=== PATIENT | male | born 1965 ===

== ENCOUNTER → 2024-02-10 13:48 | Outpatient (BNVA) | payer OTHER, SELFPAY | PROVIDERS: Visit Provider Physician Assistant Medical | DX: S39.012A Strain of muscle, fascia and tendon of lower back, initial encounter (principal); X50.0XXA Overexertion from strenuous movement or load, initial encounter | CPT/HCPCS: 99203 ==

== ENCOUNTER → 2024-02-13 09:57 | Outpatient (BNVA) | payer OTHER, SELFPAY | PROVIDERS: Visit Provider Physician Assistant Medical | DX: S39.012A Strain of muscle, fascia and tendon of lower back, initial encounter (principal); X50.0XXA Overexertion from strenuous movement or load, initial encounter | CPT/HCPCS: 99213 ==

== ENCOUNTER → 2024-02-21 12:46 | Outpatient (BNVA) | payer OTHER, SELFPAY | PROVIDERS: Visit Provider Physician Assistant | DX: S39.012A Strain of muscle, fascia and tendon of lower back, initial encounter (principal); X50.0XXA Overexertion from strenuous movement or load, initial encounter | CPT/HCPCS: 99213 ==

== ENCOUNTER → 2025-03-15 12:52 | Outpatient (BNVA) | payer OTHER, SELFPAY | PROVIDERS: Visit Provider Physician Assistant Medical | DX: S30.0XXA Contusion of lower back and pelvis, initial encounter (principal); S39.012A Strain of muscle, fascia and tendon of lower back, initial encounter; W10.9XXA Fall (on) (from) unspecified stairs and steps, initial encounter | CPT/HCPCS: 72110; 99204 ==

== ENCOUNTER → 2025-03-17 11:13 | Outpatient (BNVA) | payer OTHER, SELFPAY | PROVIDERS: Visit Provider Internal Medicine | DX: S39.012A Strain of muscle, fascia and tendon of lower back, initial encounter (principal); W01.0XXA Fall on same level from slipping, tripping and stumbling without subsequent striking against object, initial encounter | CPT/HCPCS: 99213 ==

== ENCOUNTER → 2025-03-24 11:30 | Outpatient (BNVA) | payer OTHER, SELFPAY | PROVIDERS: Visit Provider Internal Medicine | DX: S39.012A Strain of muscle, fascia and tendon of lower back, initial encounter (principal); W10.9XXA Fall (on) (from) unspecified stairs and steps, initial encounter | CPT/HCPCS: 99213 ==

== ENCOUNTER → 2025-04-14 08:33 | Outpatient (BNVA) | payer OTHER, SELFPAY | PROVIDERS: Visit Provider Internal Medicine | DX: S39.012D Strain of muscle, fascia and tendon of lower back, subsequent encounter (principal); W10.9XXD Fall (on) (from) unspecified stairs and steps, subsequent encounter | CPT/HCPCS: 99213 ==

== ENCOUNTER → 2025-04-28 08:31 | Outpatient (BNVA) | payer OTHER, SELFPAY | PROVIDERS: Visit Provider Internal Medicine | DX: M54.50 Low back pain, unspecified (principal) | CPT/HCPCS: 99213 ==

== ENCOUNTER → 2025-05-12 09:22 | Outpatient (BNVA) | payer OTHER, SELFPAY | PROVIDERS: Visit Provider Internal Medicine | DX: M54.50 Low back pain, unspecified (principal); M46.86 Other specified inflammatory spondylopathies, lumbar region | CPT/HCPCS: 99213 ==

== ENCOUNTER 2025-05-24 08:14 | Outpatient (AMB) | payer OTHER, SELFPAY ==
--- OUTSIDE RECORDS SUMMARY | 2025-05-24 08:18 | XMS_ITS | Data Portability ---
Author Organization [place] - [facility], , [facility] Address [address] [place] [address] Assessment No assessment recorded. Plan of Treatment Reminders Order Date Submit Date Provider Last Modified By Organization Details Last Modified Time Details Appointments None record ed. Lab None record ed. Referral None record ed. Procedures None record ed. Surgeries None record ed. Imaging None record ed. Medication Orders None record ed. Patient TargetsNo targets recorded. Patient InstructionsNo instructions recorded. Reason for Referral None Reported. Results Created Date Observation Date Name Description Value Unit Range Abnormal Flag Note LastModifiedBy Organization Detail LastModifiedTime 02/06/20 08 02/09/2008 thyro id stimu latin g hormo ne (TSH) TSH 1.50 uIU/m L 0.50-6 .00 the ameri can colle ge of endoc rinol ogy and ameri can thyro id assoc iatio n recom mend goal TSH value s betwe en 1.0-2 .5 mIU/m L. Not Available [address], [address], 12/25/2008 03:52:28 07/27/20 22 07/27/2022 SARS- COV-2 RNA (COVI D-19) , QUALI TATIV E NAAT sarscov2 NEGATI VE negati ve normal This test has been autho rized by the FDA under an Emerg ency Use Autho rizat ion(E UA) for you by autho rized labs. Not Available [address], [address], 07/27/2022 16:29:54 Result Notes None recorded. Problems Name Problem SNOMED Code Status Onset Date Resolution Date Notes Provider Name and Address Organization Details Recorded Time Colitis, enteritis and gastroente ritis presumed infectious 030434161 Completed 200509/30/2013 Not Available [facility] 3 02:03:03 Cough 68209476 Completed 200709/30/2013 Not Available [facility] 3 02:01:08 Extrinsic asthma with asthma attack Active 2005 Not Available [facility] 3 03:12:44 Lateral epicondyli tis 318698837 Completed 200409/30/2013 Not Available [facility] 3 02:02:34 Sleep disorder 43390288 Active 2007 Not Available [facility] 3 03:12:44 Allergic rhinitis 43303335 Active 2005 Not Available [facility] 3 03:12:44 Radiology result abnormal 801733055 Active 2005 Not Available [facility] 3 03:12:44 Allergic asthma without status asthmaticu s 25706119 Active 2004 Not Available [facility] 3 03:12:44 Insomnia 085020348 Active 2007 Not Available [facility] 3 03:12:44 Common cold 80181149 Completed 200509/30/2013 Not Available [facility] 3 02:00:29 Nieto's esophagus 176440622 Active 2005 Not Available [facility] 3 03:12:44 Obstructiv e sleep apnea syndrome 81364562 Active 2006 Not Available [facility] 3 03:12:44 Abnormal weight gain 155323914 Active 2007 Not Available [facility] 3 03:12:44 Epigastric pain 51284616 Completed 200509/30/2013 Not Available [facility] 3 02:03:28 Generalize d abdominal pain 133282617 Completed 200509/30/2013 Not Available [facility] 3 02:02:06 Left upper quadrant pain 501222268 Completed 200509/30/2013 Not Available [facility] 3 02:03:59 Problem Notes None recorded. Procedures Surgical History Date Name Laterality Status Provider Name and Address Organization Details Recorded Time 07/30/20 Budhraja - Colonoscopy completed Ricardo Wing MD [address] [place] [address], [id number] [facility] [place]/30/2022 08:52:21 07/17/20 06 completed Not Available [facility] 1 06:05:52 Imaging Results None recorded. Procedure Notes None recorded. Medical Equipment None Reported. Allergies No known drug allergies Medications Name Sig Start Date Stop Date Status Note LastModified by Organization Details LastModified Time Singulair 10 mg tablet 008 active Take 1.00 tabs every night at bedtime Not Available Not Available Not Available albuterol sulfate 2.5 mg/3 mL (0.083 %) solution for nebulization 008 active Take 3.00 ml every 4 hours as needed Not Available Not Available Not Available Flonase 50 mcg/actuation nasal spray,suspensi on 008 active Take 2.00 spray(s) daily Not Available Not Available Not Available fexofenadine 180 mg tablet 008 active Take 1.00 tabs daily Not Available Not Available Not Available omeprazole 20 mg capsule,delaye d release 008 active Take 1.00 caps daily; [facility], [facility] Not Available Not Available Not Available albuterol sulfate HFA 90 mcg/actuation aerosol inhaler 008 active Take 2.00 puffs 4 times a day as needed; pt call sat am wants rx to [facility] [place] Not Available Not Available Not Available Vitals None Recorded Social History None recorded. Functional Status None recorded. Mental Status None recorded. Family History Nothing Reported. Medical History No medical history recorded. Past Encounters Encounter ID Performer Location Encounter Start Date Encounter Closed Date Diagnosis/Indication Diagnosis SNOMED-CT Code Diagnosis ICD10 Code Diagnosis Note [id number] Phuc MCCRACKEN, [facility], OFFICE [address] [place] [address] 06/06/2005 16:38:51 06/07/2005 11:17:18 [id number] Phuc MCCRACKEN, [address] [place] [address] 08/23/2005 13:35:28 08/23/2005 18:02:19 [id number] Phuc MCCRACKEN, [address] [place] [address] 09/21/2005 16:50:58 09/24/2005 09:17:46 [id number] MD KAYKAY Vick, [address] [place] [address] 01/22/2006 16:08:34 01/23/2006 09:00:46 [id number] Joleen Butler, [address] [place] [address] 01/31/2006 11:48:24 02/01/2006 08:27:07 [id number] Joleen Butler, [address] [place] [address] 02/06/2006 09:28:38 02/07/2006 08:27:09 [id number] Joleen Butler, [address] [place] [address] 02/06/2006 00:00:00 12/01/2008 02:02:29 [id number] Phuc MCCRACKEN [address] [place] [address] 04/04/2006 16:47:19 04/05/2006 08:23:23 [id number] Phuc MCCRACKEN [address] [place] [address] 05/01/2006 16:12:26 05/02/2006 07:33:47 [id number] [facility] - [facility] [address] [place] [address] 05/02/2006 07:30:24 05/02/2006 16:23:17 [id number] [facility], HENRIK KOENIG MD [facility], [address] [place] [address] 07/17/2006 11:04:54 07/18/2006 07:51:52 [id number] Phuc MCCRACKEN [address] [place] [address] 08/13/2007 15:23:28 12/01/2008 02:02:29 [id number] [facility] - [facility] [address] [place] [address] 02/06/2008 15:47:13 02/06/2008 15:47:20 [id number] Mendel Isabel NP , [facility], OFFICE [address] [place] [address] 03/24/2008 08:31:17 12/01/2008 02:02:29 [id number] Ricardo Wing MD ASP, [facility] [address] [place] [address] 07/30/2022 07:29:39 07/30/2022 12:28:48 Health Concerns Section Related Observation LastModified by Organization Detai ls LastModified Time None Recorded Concern Status LastModified by Organization Details LastModified Time None Recorded Advance Directives Directive None Recorded Payers Insurance Date Sequence Insurance Name Policy Number Policy Smith Covered Member ID Smith Member ID Guarantor Name 07/30/2022 1 MATHEW (PPO) [id number] Aishwarya Hernandez [id number] [place] 11/02/2005 1 [facility] [id number] [place] 10/22/2005 [facility] [employer] [address] [place] 10/22/2005 [employer] [facility] [place] 04/18/2022 1 [facility] Aishwarya Hernandez [id number] [facility]
--- NOTE | 2025-05-24 08:21 | A.OFFVIS_ITS ---
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 The pain originated from a work-related injury on March 15, 2025, when the patient twisted his back while descending stairs, exacerbated by a prior incident involving physical exertion at work. The pain is described as throbbing, sore, and aching, with a pulling sensation, primarily located in the lower back and radiating from the right to the left side. The patient reports temporary relief from physical therapy and TENS unit application at [facility], although the relief is not sustained. He has been attending physical therapy sessions twice a week since the injury, with some missed sessions due to therapist illness. The patient has not taken prescribed medications like Flexeril due to concerns about exacerbating his obstructive sleep apnea. He admits regular use of CPAP machine and ongoing attempts to loose weight. The patient has a history of spine osteoarthritis, confirmed by imaging as shown below, and has been managing it with physical therapy and lifestyle modifications. He also suffers from trigger finger and hand arthritis, for which he receives cortisone injections at [facility], Hand specialist. - Onset: Pain began after a work-related injury on March 15, 2025. - Quality: Described as throbbing, sore, burning, wrenching, aching, and pulling. Pain is rated 6-8/10, constant. - Location: Primarily in the lower back, radiating from the right to the left side, worse on the right. - Exacerbating factors: Physical exertion, bending, and twisting. - Relieving factors: Temporary relief from physical therapy and TENS unit; resting, heat. - Interference: Pain restricts activities such as walking long distances and lifting heavy weights. - Affect: Patient experiences anxiety related to pain management and potential procedures. - Analgesia: Temporary relief from physical therapy and TENS unit; avoids Flexeril due to sleep apnea concerns. - Adverse Effects: No adverse effects reported from current pain management strategies. - Activities of Daily Living: Pain limits ability to walk long distances and perform strenuous activities. - Aberrant Drug Related Behaviors: No evidence of medication misuse or abuse. Oswestry Low Back Pain Disability Score=15 [facility] Medical History (Updated 05/24/25 @ 09:34 by NORBERTO Lyn) Spondylosis of thoracolumbar spine Chronic low back pain Anxiety Hand arthritis BPH (benign prostatic hyperplasia) LIDA on CPAP Social History Alcohol intake: current Tobacco use type: Cigar Review of Systems Const Details: - Musculoskeletal: Reports chronic lower back pain, denies muscle spasms. - Neurological: Denies numbness, tingling, or shooting pain. - Respiratory: Denies dyspnea, reports obstructive sleep apnea. - Genitourinary: Reports benign prostatic hyperplasia, denies urinary incontinence. - Psychological: Denies depression or anxiety, reports situational anxiety related to procedures. All systems reviewed & are unremarkable except as noted in HPI and below Physical Exam Vital Signs: Last Vital Signs Pulse 89 05/24/25 08:26 BP 173/87 H 05/24/25 08:26 Pulse Ox 96 05/24/25 08:26 Oxygen Delivery Method Room Air 05/24/25 08:26 BMI result Body Mass Index 32.7 General: Appears afebrile. Alert and oriented. Mood and affect appropriate. Follows and participates in conversation appropriately. Respiratory effort is unlabored. No cough. Able to transition from sit to stand unassisted. Ambulates with bilaterally normal heel strike and toe off. General: Yes no CVA tenderness Back/Spine/Pelvis Other: Patient is able to walk and stand on heels and tip toes with no difficulties demonstrating good motor tone. Normal gait, no limping. Lumbar extension and flexion forward with bending reproduces moderate pain. Twisting to the right reproduces mild to moderate pain. Demonstrates 5/5 strength of quadriceps bilaterally as well as flexion/dorsiflexion of bilateral feet against resistance. 2+ pedal pulses bilaterally. Straight leg rise with dorsiflexion negative bilaterally. +2 patellar and achilles reflexes bilaterally. Facet loading test positive bilaterally. Anna sign, Yonahtan?s, Pelvic compression and Stinchfield tests are negative bilaterally. No groin pain with I/E hip rotations. Significant paraspinals tenderness mostly on the right side, lower back. Valsalva maneuver is negative. Back: no CVA tenderness Cervical Spine: normal cervical lordosis, cervical muscular tenderness and No Cervical spine tenderness Thoracic/Lumbar Spine: thoracic and lumbar spine normal to inspection, No Thoracic/lumbar spine scar(s), Lasegue's sign negative, straight leg raise negative bilaterally, pain with thoraco-lumbar ROM, paraspinal muscle tenderness on the right greater than left, thoraco-lumbar ROM limited, thoraco-lumbar spasm on the right in the mid lumbar and in the lower lumbar, No thoracic spinal tenderness and lumbar spinal tenderness at L3, at L4 and at L5 Sacroiliac joints: bilaterally nontender Extrem General: Yes capillary refill normal, Yes no clubbing, cyanosis or edema and Yes no calf tenderness Results Reviewed Results Reviewed: XR lumbar spine 4V min 03/15/25 EXAMINATION: X-ray lumbar spine 4 views. CLINICAL INFORMATION: Low back pain. TECHNIQUE: AP oblique and lateral views. COMPARISON: February 10, 2024. FINDINGS: Marginal osteophyte formation and endplate sclerosis and decreased intervertebral disc height throughout the lower thoracic spine and L1-2 and L2-3 levels. No acute cortical disruption or gross malalignment. Facet joint hypertrophy at L5-S1. No lytic or blastic lesions. IMPRESSION: Multilevel thoracolumbar spondylosis without acute fracture or gross listhesis. 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 Patient will return to the clinic to discuss results of the MRI findings when it is done and consider interventional therapy as indicated. The patient should continue physical therapy and avoid activities that worsen the pain, such as heavy lifting and prolonged standing. Medication management includes avoiding Flexeril due to potential exacerbation of obstructive sleep apnea. 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 All questions and concerns have been answered and patient agreed with the plan. Follow up for MRI results and sooner as needed. Patient was informed and verbally consented to the use of an ambient scribe for clinic note documentation during this visit. Orders: Orders MR lumbar spine wo con Today G89.29 - Other chronic pain, M47.816 - Spondylosis without myelopathy or radiculopathy, lumbar region, M54.50 - Low back pain, unspecified, M54.51 - Vertebrogenic low back pain, S39.012A - Strain of muscle, fascia and tendon of lower back, initial encounter Coding Level of Care Code New Pt Level 4 (44354) Diagnoses Lumbar spondylosis M47.816 Chronic low back pain M54.50; G89.29 Strain of lumbar spine S39.012A Work related injury Y99.0 Vertebrogenic low back pain M54.51
[2025-05-24 08:26] VITALS: BP 173/87; PULSE 89; O2SAT 96; BMI 32.7
== END 2025-05-24 09:10 | disposition home or self-care (01) ==
PROVIDERS: PCP Internal Medicine; Visit Provider Nurse Practitioner Family
DX: M47.816 Spondylosis without myelopathy or radiculopathy, lumbar region (principal); M54.50 Low back pain, unspecified; G89.29 Other chronic pain; S39.012A Strain of muscle, fascia and tendon of lower back, initial encounter; Y99.0 Civilian activity done for income or pay; M54.51 Vertebrogenic low back pain
CPT/HCPCS: 99204

== ENCOUNTER → 2025-05-24 08:14 | Outpatient (BNVA) | payer OTHER, SELFPAY | PROVIDERS: Visit Provider Nurse Practitioner Family | DX: M47.816 Spondylosis without myelopathy or radiculopathy, lumbar region (principal); G89.29 Other chronic pain; S39.012A Strain of muscle, fascia and tendon of lower back, initial encounter | CPT/HCPCS: 99202 ==

== ENCOUNTER → 2025-06-07 11:09 | Outpatient (BNVA) | payer OTHER, SELFPAY | PROVIDERS: PCP Internal Medicine; Visit Provider Internal Medicine | DX: M54.50 Low back pain, unspecified (principal) | CPT/HCPCS: 99213 ==

== ENCOUNTER 2025-06-15 13:42 | Outpatient (REF) | payer OTHER, SELFPAY ==
--- NOTE | ~2025-06-15 | MR_ITS ---
EXAM: MRI Lumbar Spine without Contrast. TECHNIQUE: Multiplanar multisequence MR imaging was performed through the lumbar spine without contrast. INDICATION: M47.816 - Spondylosis without myelopathy or radiculopathy, lumbar regio PRIOR: X-ray performed March 15, 2025 FINDINGS: 5 non-rib bearing lumbar segments are present on x-ray. Marrow and end-plates: Modic 2 signal change is present at L1-2 and L2-3. Alignment: There is very subtle retrolisthesis at L2-3 and L3-4. Soft tissues: Numerous simple parapelvic and simple renal cysts are visible in the kidneys. Conus: The termination of conus medullaris is within normal limits at the level of L1. T12-L1: There is no disc bulge, herniation, spinal stenosis, or foraminal narrowing. L1-L2: There is mild loss of disc height and minimal disc bulge without spinal stenosis or foraminal narrowing. L2-L3: There is mild loss of disc height and circumferential broad-based disc bulge with left subarticular zone extrusion that mildly compresses the left L3 nerve root. There is no foraminal narrowing. L3-L4: There is mild loss of disc height and minimal circumferential broad-based disc bulge with mild facet degeneration not resulting in spinal stenosis. There is mild bilateral foraminal narrowing. L4-L5: There is mild circumferential broad-based disc bulge and moderate facet degeneration with trace fluid in the facet joints. There is no spinal stenosis. There is mild to moderate right and mild left foraminal narrowing. L5-S1: There is no disc bulge, herniation, spinal stenosis, or foraminal narrowing. MR/MR lumbar spine wo con IMPRESSION: L2-L3: There is a left subarticular zone herniation that mildly compresses the left L3 nerve root. L4-L5: There is mild to moderate right foraminal narrowing. Electronically signed by: Den Crespo MD 06/15/2025 03:05 PM EDT
--- OUTSIDE RECORDS SUMMARY | 2025-06-15 14:27 | XMS_ITS | Clinical Summary ---
Author Organization [facility] Address [address] [facility] [address] [facility] [address] [place] [phone] Phone Care Team Providers Care Instrument Engineer Name Role Phone Temo Vasquez MD Primary Care Provider Social History Tobacco Use Types Packs/Day Years Used Date Smoking Tobacco: Never Assessed Education Answer Date Recorded Are you interested in more education? Not on demario e 03/09/2023 Are you concerned about learning? Not on file 03/09/2023 No 03/09/2023 No 03/09/2023 Digital Access Answer Date Recorded No 04/09/2023 No 04/09/2023 Reliable internet access at home? Not on file 04/09/2023 Device with a working camera? Not on file Sex and Gender Information Value Date Recorded Sex Assigned at Not on file Legal Sex Male 1:51 PM EDT Gender Identity Not on file Sexual Orientation Not on file Plan of Treatment Not on file Medical Devices Not on file Insurance [facility] PPO BLUE CROSS OUT OF STATE PPO [facility] [address] [employer] OUT OF STATE PPO [facility] [address] [employer] OUT OF STATE PPO [facility] [address] [facility] OUT OF STATE PPO [address] [facility] OUT OF [facility]PO [facility] [place] [id number] [employer] OUT OF STATE P[place] [facility] [place] [id number] [employer] OUT OF STATE PPO [facility] [address] [employer] OUT OF STATE PPO Care Teams Instrument Engineer Relationship Specialty Start Date End Date Temo Vasquez MD PCP - General Internal Medicine 07/30/22 Additional Source Comments The information contained in this document represents components of the legal health record. It is not the complete legal health record.[facility]
== END 2025-06-15 13:43 | disposition home or self-care (01) ==
LOC: HO.MRI 13:42
PROVIDERS: PCP Internal Medicine; Visit Provider Nurse Practitioner Family
DX: S39.012A Strain of muscle, fascia and tendon of lower back, initial encounter (principal); M47.816 Spondylosis without myelopathy or radiculopathy, lumbar region; G89.29 Other chronic pain
CPT/HCPCS: 72148

== ENCOUNTER → 2025-06-15 13:56 | Outpatient (BNV) | payer OTHER, SELFPAY | PROVIDERS: PCP Internal Medicine; Visit Provider Radiology Diagnostic Radiology | DX: M99.03 Segmental and somatic dysfunction of lumbar region (principal); M51.26 Other intervertebral disc displacement, lumbar region | CPT/HCPCS: 72148 ==

== ENCOUNTER → 2025-06-18 11:09 | Outpatient (BNVA) | payer OTHER, SELFPAY | PROVIDERS: PCP Internal Medicine; Visit Provider Internal Medicine | DX: M54.9 Dorsalgia, unspecified (principal); M51.26 Other intervertebral disc displacement, lumbar region | CPT/HCPCS: 99213 ==

== ENCOUNTER 2025-06-21 11:46 | Outpatient (AMB) | payer OTHER, SELFPAY ==
[2025-06-21 11:47] VITALS: BP 156/89; PULSE 76; RESP 16; O2SAT 98; BMI 32.1
--- NOTE | 2025-06-21 11:47 | A.OFFVIS_ITS ---
Vital Signs 06/21/25 11:47 Height 5 ft 8 in Weight 211 lb BMI 32.1 BP 156/89 H Blood Pressure Location Rt brachial Position Sitting Respiration 16 Pulse 76 Pulse Source Pulse Oximeter Pulse Oximetry (%) 98 Oxygen Delivery Method Room Air Intake Visit Reasons: Discuss MRI Results Processing Supervisor Required: No Accompanied by: Self / Same As Patient Allergies No Known Allergies Allergy (Verified 06/21/25 11:50) HPI Comments Details: The patient is a 60-year-old male presenting with follow up for back pain and discuss recent lumbar spine MRI results. The patient reports experiencing sharp back pain, particularly when bending backwards, which has been persistent and uncomfortable. He denies any leg pain but mentions discomfort in the hip area [place], which required frequent stops and stretching. The patient has a history of physical activities that have exacerbated his condition, including work-related physical interventions and personal activities like mowing the lawn. Lumbar spine MRI showed L2-L3a left subarticular zone herniation that mildly compresses the left L3 nerve root at L2-L3 level and mild to moderate right foraminal narrowing at L4-L5 with mild circumferential broad- based disc bulge and moderate facet degeneration with trace fluid in the facet joints. He has been managing his symptoms with ice, heat, and ibuprofen, and has been avoiding exercises that involve bending backwards. Patient has not been taking cyclobenzaprine due to concerns about its effects on his breathing, as he uses a CPAP machine. He has run out of magnesium and ibuprofen, which he uses for pain management. PRIOR: The patient is a 59-year-old male presenting with chronic lower back pain. The pain originated from a work-related injury on March 15, 2025, when the patient twisted his back while descending stairs, exacerbated by a prior incident involving physical exertion at work. The pain is described as throbbing, sore, and aching, with a pulling sensation, primarily located in the lower back and radiating from the right to the left side. The patient reports temporary relief from physical therapy and TENS unit application at [facility], although the relief is not sustained. He has been attending physical therapy sessions twice a week since the injury, with some missed sessions due to therapist illness. The patient has not taken prescribed medications like Flexeril due to concerns about exacerbating his obstructive sleep apnea. He admits regular use of CPAP machine and ongoing attempts to loose weight. The patient has a history of spine osteoarthritis, confirmed by imaging as shown below, and has been managing it with physical therapy and lifestyle modifications. He also suffers from trigger finger and hand arthritis, for which he receives cortisone injections at [facility], Hand specialist. - Onset: Pain began after a work-related injury on March 15, 2025. - Quality: Described as throbbing, sore, burning, wrenching, aching, and pulling. Pain is rated 6-8/10, constant. - Location: Primarily in the lower back, radiating from the right to the left side, worse on the right. - Exacerbating factors: Physical exertion, bending, and twisting. - Relieving factors: Temporary relief from physical therapy and TENS unit; resting, heat. - Interference: Pain restricts activities such as walking long distances and lifting heavy weights. - Affect: Patient experiences anxiety related to pain management and potential procedures. - Analgesia: Temporary relief from physical therapy and TENS unit; avoids Flexeril due to sleep apnea concerns. - Adverse Effects: No adverse effects reported from current pain management strategies. - Activities of Daily Living: Pain limits ability to walk long distances and perform strenuous activities. - Aberrant Drug Related Behaviors: No evidence of medication misuse or abuse. Oswestry Low Back Pain Disability Score=15 [facility] Medical History Spondylosis of thoracolumbar spine Chronic low back pain Anxiety Hand arthritis BPH (benign prostatic hyperplasia) LIDA on CPAP Social History Alcohol intake: current Tobacco use type: Cigar Review of Systems Const All systems reviewed & are unremarkable except as noted in HPI and below Physical Exam Vital Signs: Last Vital Signs Pulse 76 06/21/25 11:47 Resp 16 06/21/25 11:47 BP 156/89 H 06/21/25 11:47 Pulse Ox 98 06/21/25 11:47 Oxygen Delivery Method Room Air 06/21/25 11:47 BMI result Body Mass Index 32.1 General: Appears afebrile. Alert and oriented. Mood and affect appropriate. Follows and participates in conversation appropriately. Respiratory effort is unlabored. No cough. Able to transition from sit to stand unassisted. Ambulates with bilaterally normal heel strike and toe off. General: Yes no CVA tenderness Back/Spine/Pelvis Other: Limited lumbar ROM due to pain. Normal gait, no limping. Lumbar extension reproduces moderate-severe pain and flexion forward with bending reproduces mild to moderate pain. Demonstrates 5/5 strength of quadriceps bilaterally as well as flexion/dorsiflexion of bilateral feet against resistance. 2+ pedal pulses bilaterally. Straight leg rise with dorsiflexion negative bilaterally. +2 patellar and achilles reflexes bilaterally. Facet loading test positive bilaterally. Anna sign, Yonathan?s, Pelvic compression and Stinchfield tests are negative bilaterally. No groin pain with I/E hip rotations. Significant paraspinals tenderness mostly on the right side, lower back. Valsalva maneuver is negative. Back: no CVA tenderness Cervical Spine: cervical ROM normal, cervical muscular tenderness and No Cervical spine tenderness Thoracic/Lumbar Spine: thoracic and lumbar spine normal to inspection, No Thoracic/lumbar spine scar(s), Lasegue's sign negative, straight leg raise negative bilaterally, pain with thoraco-lumbar ROM, paraspinal muscle tenderness on the right greater than left, thoraco-lumbar ROM limited, thoraco-lumbar spasm on the right in the mid lumbar and in the lower lumbar, No thoracic spinal tenderness and lumbar spinal tenderness at L3, at L4 and at L5 Sacroiliac joints: bilaterally nontender Extrem General: Yes capillary refill normal, Yes no clubbing, cyanosis or edema and Yes no calf tenderness Results Reviewed Results Reviewed: XR lumbar spine 4V min 03/15/25 EXAMINATION: X-ray lumbar spine 4 views. CLINICAL INFORMATION: Low back pain. TECHNIQUE: AP oblique and lateral views. COMPARISON: February 10, 2024. FINDINGS: Marginal osteophyte formation and endplate sclerosis and decreased intervertebral disc height throughout the lower thoracic spine and L1-2 and L2-3 levels. No acute cortical disruption or gross malalignment. Facet joint hypertrophy at L5-S1. No lytic or blastic lesions. IMPRESSION: Multilevel thoracolumbar spondylosis without acute fracture or gross listhesis. MRI Lumbar Spine without Contrast 06/15/25 TECHNIQUE: Multiplanar multisequence MR imaging was performed through the lumbar spine without contrast. INDICATION: M47.816 - Spondylosis without myelopathy or radiculopathy, lumbar regio PRIOR: X-ray performed March 15, 2025 FINDINGS: 5 non-rib bearing lumbar segments are present on x-ray. Marrow and end-plates: Modic 2 signal change is present at L1-2 and L2-3. Alignment: There is very subtle retrolisthesis at L2-3 and L3-4. Soft tissues: Numerous simple parapelvic and simple renal cysts are visible in the kidneys. Conus: The termination of conus medullaris is within normal limits at the level of L1. T12-L1: There is no disc bulge, herniation, spinal stenosis, or foraminal narrowing. L1-L2: There is mild loss of disc height and minimal disc bulge without spinal stenosis or foraminal narrowing. L2-L3: There is mild loss of disc height and circumferential broad-based disc bulge with left subarticular zone extrusion that mildly compresses the left L3 nerve root. There is no foraminal narrowing. L3-L4: There is mild loss of disc height and minimal circumferential broad-based disc bulge with mild facet degeneration not resulting in spinal stenosis. There is mild bilateral foraminal narrowing. L4-L5: There is mild circumferential broad-based disc bulge and moderate facet degeneration with trace fluid in the facet joints. There is no spinal stenosis. There is mild to moderate right and mild left foraminal narrowing. L5-S1: There is no disc bulge, herniation, spinal stenosis, or foraminal narrowing. IMPRESSION: L2-L3: There is a left subarticular zone herniation that mildly compresses the left L3 nerve root. L4-L5: There is mild to moderate right foraminal narrowing. Assessment & Plan Assessment & Plan (1) Chronic low back pain: Code(s): M54.50 - Low back pain, unspecified; G89.29 - Other chronic pain Category: Medical (2) Strain of lumbar spine: Code(s): S39.012A - Strain of muscle, fascia and tendon of lower back, initial encounter Category: Medical (3) Vertebrogenic low back pain: Code(s): M54.51 - Vertebrogenic low back pain Category: Medical (4) Lumbar spondylosis: Code(s): M47.816 - Spondylosis without myelopathy or radiculopathy, lumbar region Category: Medical (5) Facet arthritis of lumbar region: Code(s): M47.816 - Spondylosis without myelopathy or radiculopathy, lumbar region Category: Medical Plan - Continue physical therapy, avoid pain producing movements and exercises. Advise to avoid heavy lifting, twisting, high-impact exercises and excessive bending backwards to facilitate healing. - Script provided for lidocaine patch and magnesium glycinate, continue Ibuprofen for symptomatic relief. - Schedule Bilateral therapeutic L4-L5 facet joint injections with local and fluoroscopy. Expectations, risks and benefits were reviewed. Patient is aware she will be contacted to schedule this procedure. All questions and concerns have been answered and patient agreed with the treatment plan. Follow-up after injections and sooner as needed. Patient was informed and verbally consented to the use of an ambient scribe for clinic note documentation during this visit. Medications: New magnesium glycinate 200 mg (2 x 100 mg magnesium) PO DAILY 60 caps 3RF muscle spasms 30 days G89.29 - Other chronic pain, M54.50 - Low back pain, unspecified, M54.51 - Vertebrogenic low back pain, S39.012A - Strain of muscle, fascia and tendon of lower back, initial encounter lidocaine 5% 1 patch topical DAILY 30 ea 3RF pain 30 days G89.29 - Other c hronic pain, M47.816 - Spondylosis without myelopathy or radiculopathy, lumbar region, M54.50 - Low back pain, unspecified, M54.51 - Vertebrogenic low back pain, S39.012A - Strain of muscle, fascia and tendon of lower back, initial encounter Refilled ibuprofen 800 mg PO TID 30 tabs 0RF Discontinued cyclobenzaprine Discontinued Reason: Patient no longer taking 10 mg PO BEDTIME PRN 10 tabs 0RF muscle spasm Coding Level of Care Code Est Pt Level 4 (07788) Complex EM visit Add On G2211 Diagnoses Chronic low back pain M54.50; G89.29 Strain of lumbar spine S39.012A Vertebrogenic low back pain M54.51 Lumbar spondylosis M47.816 Facet arthritis of lumbar region M47.816
--- OUTSIDE RECORDS SUMMARY | 2025-06-21 12:17 | XMS_ITS | Clinical Summary ---
Author Organization [facility] Address [address] [facility] [address] [place] [phone] Phone Care Team Providers Care Bandsaw Operator Name Role Phone Temo Vasquez MD Primary Care Provider [phone] Social History Tobacco Use Types Packs/Day Years [...] Medical Devices Not on file Insurance [facility] PPO BLUE CROSS OUT OF STATE PPO [facility] [address] [employer] CR[employer] OUT OF STATE PPO [facility] [address] [employer] OUT OF STATE PPO [facility] [address] [facility] OUT OF STATE PPO [address] [facility] OUT OF [facility] [place] [id number] [employer] [place] OUT OF STATE [place] [facility] [place] [id number] BLUE CROSS OUT OF STATE PPO [facility] [address] [employer] OUT OF STATE PPO Care Teams Bandsaw Operator Relationship Specialty Start Date End Date Temo Vasquez MD PCP - General Internal Medicine 07/30/22 Additional Source Comments The information contained in this document represents components of the legal health record. It is not the complete legal health record.[facility]
== END 2025-06-21 12:12 | disposition home or self-care (01) ==
PROVIDERS: PCP Internal Medicine; Visit Provider Nurse Practitioner Family
DX: M54.50 Low back pain, unspecified (principal); G89.29 Other chronic pain; S39.012A Strain of muscle, fascia and tendon of lower back, initial encounter; M54.51 Vertebrogenic low back pain; M47.816 Spondylosis without myelopathy or radiculopathy, lumbar region
CPT/HCPCS: 99214; G2211

== ENCOUNTER → 2025-06-21 11:46 | Outpatient (BNVA) | payer OTHER, SELFPAY | PROVIDERS: PCP Internal Medicine; Visit Provider Nurse Practitioner Family | DX: Z71.2 Person consulting for explanation of examination or test findings (principal); G89.29 Other chronic pain; S39.012A Strain of muscle, fascia and tendon of lower back, initial encounter; M47.816 Spondylosis without myelopathy or radiculopathy, lumbar region | CPT/HCPCS: 99212 ==

== ENCOUNTER → 2025-07-19 11:09 | Outpatient (BNVA) | payer OTHER, SELFPAY | PROVIDERS: PCP Internal Medicine; Visit Provider Internal Medicine | DX: M54.9 Dorsalgia, unspecified (principal); M51.26 Other intervertebral disc displacement, lumbar region | CPT/HCPCS: 99213 ==

== ENCOUNTER 2025-07-22 06:21 | Outpatient (REF) | payer OTHER, SELFPAY ==
--- NOTE | ~2025-07-22 | FL_ITS ---
EXAMINATION: FL GUIDANCE ONLY HISTORY: M54.51 - Vertebrogenic low back pain COMPARISON: None available. TECHNIQUE: Fluoroscopy time: 0.1 minute. Cumulative Dose: 5.17 mGy. DAP: 0.0266 mGym2 Images: 2. FINDINGS: Fluoroscopic spot films of the spine demonstrate a needle in place. FL/FL guidance in treatment room IMPRESSION: Fluoroscopy during procedure. Please see procedure report for additional information. Electronically signed by: Jewel Rosas MD 07/22/2025 01:10 PM EDT
--- OUTSIDE RECORDS SUMMARY | 2025-07-22 06:24 | XMS_ITS | Clinical Summary ---
Author Organization [facility] Address [address] [facility] [address] [place] [id number] Phone Care Team Providers Care Skein Inspector Name Role Phone Temo Vasquez MD Primary Care Provider [phone] Social History Tobacco Use Types Packs/Day Years [...] file Medical Devices Not on file Insurance [facility] PPO BLUE CROSS OUT OF STATE PPO [facility] [address] [employer] OUT OF STATE PPO [facility] [address] [employer] OUT OF STATE PPO [facility] [address] [facility] OUT OF STATE PPO [address] [facility] OUT [facility] [id number] [employer] [place] OUT OF STATE [place] [facility] [id number] BLUE CROSS OUT OF STATE PPO [facility] [address] [employer] CR[employer] OUT OF STATE PPO Care Teams Skein Inspector Relationship Specialty Start Date End Date Temo Vasquez MD PCP - General Internal Medicine 07/30/22 Additional Source Comments The information contained in this document represents components of the legal health record. It is not the complete legal health record.[facility]
== END 2025-07-22 06:22 | disposition home or self-care (01) ==
LOC: CF 06:21
PROVIDERS: Visit Provider Internal Medicine
DX: Z13.89 Encounter for screening for other disorder (principal)

== ENCOUNTER 2025-07-22 11:42 | Outpatient (AMB) | payer OTHER, SELFPAY ==
[2025-07-22 11:49] VITALS: BP 156/90; PULSE 71; RESP 16; O2SAT 97; BMI 32.1
--- NOTE | 2025-07-22 11:49 | A.OFFVIS_ITS ---
Vital Signs 07/22/25 11:49 07/22/25 12:41 Height 5 ft 8 in Weight 211 lb BMI 32.1 BP 156/90 H 156/86 H Blood Pressure Location Lt brachial Lt brachial Position Sitting Sitting Respiration 16 16 Pulse 71 66 Pulse Source Pulse Oximeter Pulse Oximeter Pulse Oximetry (%) 97 96 Oxygen Delivery Method Room Air Room Air Intake Visit Reasons: Bilateral L4-L5 Facet Joint Steroid Injection Allergies No Known Allergies Allergy (Verified 06/21/25 11:50) HPI HPI Bilateral L4-L5 Facet Joint Steroid Injection: Details: Patient presents for scheduled procedure. Denies any recent cough, cold, infection, fever or other significant changes in medical history since last office visit. [facility] Medical History Spondylosis of thoracolumbar spine Chronic low back pain Anxiety Hand arthritis BPH (benign prostatic hyperplasia) LIDA on CPAP Social History Alcohol intake: current Tobacco use type: Cigar Physical Exam Vital Signs: Last Vital Signs Pulse 66 07/22/25 12:41 Resp 16 07/22/25 12:41 BP 156/86 H 07/22/25 12:41 Pulse Ox 96 07/22/25 12:41 Oxygen Delivery Method Room Air 07/22/25 12:41 BMI result Body Mass Index 32.1 Office Procedures Lumbar/Sacral Facet Inj Details: Lumbar Intra-articular Facet Injections, Bilateral, L4/L5 After obtaining written consent, pre-procedure blood pressure and pulse were recorded and are in the nursing record for review. The patient was placed in a prone position. The respective lumbosacral area was prepped with chloraprep and draped in sterile fashion. The target facet joints were visualized using ipsilateral oblique fluoroscopy to reveal the joint line. The skin over the target facet joints was anesthetized with 0.5% lidocaine. A 22 gauge 3.5 inch needle with a small bend on the tip was advanced towards the target facet joint under fluoroscopic guidance until bony contact. The needle was then maneuvered and rotated until it slid into the joint slightly. No paresthesias were elicited with needle placement and aspiration was negative for blood and CSF. Next, 20mg of triamcinilone was injected (0.5cc total per level). The identical procedure was performed on each side. The skin was cleansed and a sterile bandage was applied. Following the procedure the patient's vital signs were stable. The patient tolerated the procedure well and no complications were encountered. Following the procedure the patient's vital signs were stable. The patient was discharged home in good condition with post-procedural instructions. Time Out: Immediately prior to the procedure, the following was verbally confirmed that there is a signed consent form and that the correct patient, soniya nned procedure, site and side are consistent with documentation and that necessary equipment and/or blood products are available prior to the start of the case. Complications: none EBL: <5 cc 22795 - with Fluoroscopy (bilateral) Procedure code (CPT) selection complete Assessment & Plan Assessment & Plan (1) Lumbar spondylosis: Code(s): M47.816 - Spondylosis without myelopathy or radiculopathy, lumbar region Category: Medical Plan Patient is status post bilateral intra-articular L4/5 facet steroid injections. Patient tolerated procedure well and was discharged home in stable condition with discharge instructions. All questions were answered. We will follow-up via telephone or in clinic to assess response to therapy. A follow-up appointment was made during today's visit. Orders: Orders FL guidance in treatment room 07/22/25 M54.51 - Vertebrogenic low back pain Coding Level of Care Code Procedure Only Diagnoses Lumbar spondylosis M47.816 CPT Codes Facet Injection-Lumbar/Sacral - CPT: 21764 - with Fluoroscopy ([id number])
[2025-07-22 12:41] VITALS: BP 156/86; PULSE 66; RESP 16; O2SAT 96
--- OUTSIDE RECORDS SUMMARY | 2025-07-22 16:04 | XMS_ITS | Clinical Summary ---
Author Organization [facility] Address [address] [facility] [address] [place] [address] Phone Care Team Providers Care Street Supervisor Name Role Phone Temo Vasquez MD Primary Care Provider [phone] Social History Tobacco Use Types Packs/Day Years [...] file Medical Devices Not on file Insurance [facility] PPO BLUE CROSS OUT OF STATE PPO Critical access hospital [address] BLUE CROSS OUT OF STATE PPO Member Subscriber Plan / Payer (Ef fective 2017-Present) Name:Naveen Ruth Relation to Subscriber:Spouse Name:ABRIL DEAN Date of :1900 (Home) Address: [facility] [place] [address] Payer ID:[id number] ([facility] Type:PPO Address: [place] [address] Critical access hospital [address] BLUE CROSS OUT OF STATE PPO Critical access hospital [address] [facility] OUT OF STATE PPO [address] [facility] OUT OF [facility] [place] [phone] BLUE CROSS OUT OF STATE PPO [place] [id number] BLUE CROSS OUT OF STATE PPO Member Subscriber Plan / Payer (Ef fective 2017-Present) Name:Naveen Ruth Relation to Subscriber:Spouse Name:ABRIL DEAN Date of :1900 (Home) Address: [facility] [place] [address] Payer ID:[id number] ([facility]) Type:PPO Address: [place] [address] Critical access hospital [address] BLUE CROSS OUT OF STATE PPO Care Teams Street Supervisor Relationship Specialty Start Date End Date Temo Vasquez MD PCP - General Internal Medicine 07/30/22 Additional Source Comments The information contained in this document represents components of the legal health record. It is not the complete legal health record.[facility]
== END 2025-07-22 12:47 | disposition home or self-care (01) ==
LOC: HO.PMCPRC 11:42
PROVIDERS: PCP Internal Medicine; Visit Provider Internal Medicine
DX: M47.816 Spondylosis without myelopathy or radiculopathy, lumbar region (principal)
CPT/HCPCS: 64493

== ENCOUNTER → 2025-08-02 09:12 | Outpatient (BNVA) | payer OTHER, SELFPAY | PROVIDERS: PCP Internal Medicine; Visit Provider Internal Medicine | DX: M51.27 Other intervertebral disc displacement, lumbosacral region (principal) | CPT/HCPCS: 99213 ==

== ENCOUNTER 2025-08-19 10:45 | Outpatient (AMB) | payer OTHER, SELFPAY ==
--- NOTE | 2025-08-19 10:57 | A.OFFVIS_ITS ---
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 The injection was intended to provide at least three months of pain relief, but the patient reports that the relief was short-lived, with pain returning within a few hours post-procedure. The patient describes difficulty sitting for prolonged periods, necessitating standing due to discomfort. The patient reports that the pain is localized primarily to the left side. There is no associated leg pain, and the patient has experienced similar issues with cortisone shots in the past, noting variable response times. Denies any bladder or bowel dysfunction or saddle anesthesia. The patient has been attempting home exercises to manage symptoms, as physical therapy appointments have been difficult to secure. He reports that bending down is painful, although he can perform the action with some discomfort. The patient has a history of receiving cortisone injections in the hands, which eventually provided relief after a delayed response. Denies any recent cough, cold, infection, fever or any significant changes in medical history since last office visit. Past Procedures: 07/22/25: Bilateral L4-L5 Facet Joint Steroid Injections-60% ongoing pain relief PRIOR: The patient is a 60-year-old male presenting with follow up for back pain and discuss recent lumbar spine MRI results. The patient reports experiencing sharp back pain, particularly when bending backwards, which has been persistent and uncomfortable. He denies any leg pain but mentions discomfort in the hip area [place] the [place], which required frequent stops and stretching. The patient has a history of physical activities that have exacerbated his condition, including work-related physical interventions and personal activities like mowing the lawn. Lumbar spine MRI showed L2-L3a left subarticular zone herniation that mildly compresses the left L3 nerve root at L2-L3 level and mild to moderate right foraminal narrowing at L4-L5 with mild circumferential broad- based disc bulge and moderate facet degeneration with trace fluid in the facet joints. He has been managing his symptoms with ice, heat, and ibuprofen, and has been avoiding exercises that involve bending backwards. Patient has not been taking cyclobenzaprine due to concerns about its effects on his breathing, as he uses a CPAP machine. He has run out of magnesium and ibuprofen, which he uses for pain management. PRIOR: The patient is a 59-year-old male presenting with chronic lower back pain. The pain originated from a work-related injury on March 15, 2025, when the patient twisted his back while descending stairs, exacerbated by a prior incident involving physical exertion at work. The pain is described as throbbing, sore, and aching, with a pulling sensation, primarily located in the lower back and radiating from the right to the left side. The patient reports temporary relief from physical therapy and TENS unit application at [facility], although the relief is not sustained. He has been attending physical therapy sessions twice a week since the injury, with some missed sessions due to therapist illness. The patient has not taken prescribed medications like Flexeril due to concerns about exacerbating his obstructive sleep apnea. He admits regular use of CPAP machine and ongoing attempts to loose weight. The patient has a history of spine osteoarthritis, confirmed by imaging as shown below, and has been managing it with physical therapy and lifestyle modifications. He also suffers from trigger finger and hand arthritis, for which he receives cortisone injections at [facility], Hand specialist. - Onset: Pain began after a work-related injury on March 15, 2025. - Quality: Described as throbbing, sore, burning, wrenching, aching, and pulling. Pain is rated 6-8/10, constant. - Location: Primarily in the lower back, radiating from the right to the left side, worse on the right. - Exacerbating factors: Physical exertion, bending, and twisting. - Relieving factors: Temporary relief from physical therapy and TENS unit; resting, heat. - Interference: Pain restricts activities such as walking long distances and lifting heavy weights. - Affect: Patient experiences anxiety related to pain management and potential procedures. - Analgesia: Temporary relief from physical therapy and TENS unit; avoids Flexeril due to sleep apnea concerns. - Adverse Effects: No adverse effects reported from current pain management strategies. - Activities of Daily Living: Pain limits ability to walk long distances and perform strenuous activities. - Aberrant Drug Related Behaviors: No evidence of medication misuse or abuse. Oswestry Low Back Pain Disability Score=15 [facility] Medical History Spondylosis of thoracolumbar spine Chronic low back pain Anxiety Hand arthritis BPH (benign prostatic hyperplasia) LIDA on CPAP Social History Alcohol intake: current Tobacco use type: Cigar Review of Systems Const Details: - Musculoskeletal: Reports persistent back pain, denies leg pain. All systems reviewed & are unremarkable except as noted in HPI and below Physical Exam Vital Signs: Last Vital Signs Pulse 78 08/19/25 11:02 BP 161/94 H 08/19/25 11:02 Pulse Ox 99 08/19/25 11:02 Oxygen Delivery Method Room Air 08/19/25 11:02 BMI result Body Mass Index 31.6 General: Appears afebrile. Alert and oriented. Mood and affect appropriate. Follows and participates in conversation appropriately. Respiratory effort is unlabored. No cough. Able to transition from sit to stand unassisted. Ambulates with bilaterally normal heel strike and toe off, reports back pain increase with heel/toe standing on the left. General: Yes no CVA tenderness Back/Spine/Pelvis Other: Limited lumbar ROM due to pain. Normal gait, no limping. Lumbar extension reproduces mild to moderate pain and flexion forward with bending reproduces moderate pain. Demonstrates 5/5 strength of quadriceps bilaterally as well as flexion/dorsiflexion of bilateral feet against resistance. 2+ pedal pulses bilaterally. Straight leg rise with dorsiflexion negative bilaterally. +2 patellar and achilles reflexes bilaterally. Facet loading test positive bilaterally. Anna sign, Yonathan?s, Pelvic compression and Stinchfield tests are negative bilaterally. No groin pain with I/E hip rotations. Significant paraspinals tenderness mostly on the right side, lower back. Valsalva maneuver is negative. Back: no CVA tenderness Cervical Spine: cervical ROM normal, cervical muscular tenderness and No Cervical spine tenderness Thoracic/Lumbar Spine: thoracic and lumbar spine normal to inspection, No Thoracic/lumbar spine scar(s), Lasegue's sign negative, straight leg raise negative bilaterally, pain with thoraco-lumbar ROM, paraspinal muscle tenderness on the right greater than left, thoraco-lumbar ROM limited, thoraco-lumbar spasm on the right in the mid lumbar and in the lower lumbar, No thoracic spinal tenderness and lumbar spinal tenderness at L3, at L4 and at L5 Sacroiliac joints: bilaterally nontender Results Reviewed Results Reviewed: XR lumbar spine 4V min 03/15/25 EXAMINATION: X-ray lumbar spine 4 views. CLINICAL INFORMATION: Low back pain. TECHNIQUE: AP oblique and lateral views. COMPARISON: February 10, 2024. FINDINGS: Marginal osteophyte formation and endplate sclerosis and decreased intervertebral disc height throughout the lower thoracic spine and L1-2 and L2-3 levels. No acute cortical disruption or gross malalignment. Facet joint hypertrophy at L5-S1. No lytic or blastic lesions. IMPRESSION: Multilevel thoracolumbar spondylosis without acute fracture or gross listhesis. MRI Lumbar Spine without Contrast 06/15/25 TECHNIQUE: Multiplanar multisequence MR imaging was performed through the lumbar spine without contrast. INDICATION: M47.816 - Spondylosis without myelopathy or radiculopathy, lumbar regio PRIOR: X-ray performed March 15, 2025 FINDINGS: 5 non-rib bearing lumbar segments are present on x-ray. Marrow and end-plates: Modic 2 signal change is present at L1-2 and L2-3. Alignment: There is very subtle retrolisthesis at L2-3 and L3-4. Soft tissues: Numerous simple parapelvic and simple renal cysts are visible in the kidneys. Conus: The termination of conus medullaris is within normal limits at the level of L1. T12-L1: There is no disc bulge, herniation, spinal stenosis, or foraminal narrowing. L1-L2: There is mild loss of disc height and minimal disc bulge without spinal stenosis or foraminal narrowing. L2-L3: There is mild loss of disc height and circumferential broad-based disc bulge with left subarticular zone extrusion that mildly compresses the left L3 nerve root. There is no foraminal narrowing. L3-L4: There is mild loss of disc height and minimal circumferential broad-based disc bulge with mild facet degeneration not resulting in spinal stenosis. There is mild bilateral foraminal narrowing. L4-L5: There is mild circumferential broad-based disc bulge and moderate facet degeneration with trace fluid in the facet joints. There is no spinal stenosis. There is mild to moderate right and mild left foraminal narrowing. L5-S1: There is no disc bulge, herniation, spinal stenosis, or foraminal narrowing. IMPRESSION: L2-L3: There is a left subarticular zone herniation that mildly compresses the left L3 nerve root. L4-L5: There is mild to moderate right foraminal narrowing. Assessment & Plan Assessment & Plan (1) Chronic low back pain: Code(s): M54.50 - Low back pain, unspecified; G89.29 - Other chronic pain Category: Medical (2) Strain of lumbar spine: Code(s): S39.012A - Strain of muscle, fascia and tendon of lower back, initial encounter Category: Medical (3) Vertebrogenic low back pain: Code(s): M54.51 - Vertebrogenic low back pain Category: Medical (4) Lumbar spondylosis: Code(s): M47.816 - Spondylosis without myelopathy or radiculopathy, lumbar region Category: Medical (5) Facet arthritis of lumbar region: Code(s): M47.816 - Spondylosis without myelopathy or radiculopathy, lumbar region Category: Medical (6) Lumbar disc herniation: Code(s): M51.26 - Other intervertebral disc displacement, lumbar region Category: Medical Plan The plan involves scheduling Left L2-L3 TFESI with local and fluoroscopy for symptomatic relief of left sided back pain. Expectations, risks and benefits were reviewed. Patient is aware he will be contacted to schedule this procedure. If the subsequent injection does not provide adequate relief, a referral to a Neurosurgeon for further evaluation will be considered. The patient is encouraged to continue with home exercises and attempt to secure physical therapy appointments to aid in symptom management. Advise to avoid heavy lifting, twisting, high-impact exercises and excessive bending backwards to facilitate healing. Continue lidocaine patch and magnesium glycinate, continue Ibuprofen for symptomatic relief. All questions and concerns have been answered and patient agreed with the treatment plan. Follow-up after injections and sooner as needed. Patient was informed and verbally consented to the use of an ambient scribe for clinic note documentation during this visit. Coding Level of Care Code Est Pt Level 4 (60783) Complex EM visit Add On G2211 Diagnoses Chronic low back pain M54.50; G89.29 Strain of lumbar spine S39.012A Vertebrogenic low back pain M54.51 Lumbar spondylosis M47.816 Facet arthritis of lumbar region M47.816 Lumbar disc herniation M51.26
[2025-08-19 11:02] VITALS: BP 161/94; PULSE 78; O2SAT 99; BMI 31.6
== END 2025-08-19 11:30 | disposition home or self-care (01) ==
PROVIDERS: PCP Internal Medicine; Visit Provider Nurse Practitioner Family
DX: M54.50 Low back pain, unspecified (principal); G89.29 Other chronic pain; S39.012A Strain of muscle, fascia and tendon of lower back, initial encounter; M54.51 Vertebrogenic low back pain; M47.816 Spondylosis without myelopathy or radiculopathy, lumbar region; M51.26 Other intervertebral disc displacement, lumbar region
CPT/HCPCS: 99214; G2211

== ENCOUNTER → 2025-08-19 10:45 | Outpatient (BNVA) | payer OTHER, SELFPAY | PROVIDERS: PCP Internal Medicine; Visit Provider Nurse Practitioner Family | DX: G89.29 Other chronic pain (principal); M47.816 Spondylosis without myelopathy or radiculopathy, lumbar region; S39.012A Strain of muscle, fascia and tendon of lower back, initial encounter | CPT/HCPCS: 99212 ==

== ENCOUNTER → 2025-08-25 10:30 | Outpatient (BNVA) | payer OTHER, SELFPAY | PROVIDERS: PCP Internal Medicine; Visit Provider Internal Medicine | DX: M54.50 Low back pain, unspecified (principal) | CPT/HCPCS: 99213 ==

== ENCOUNTER → 2025-09-22 10:31 | Outpatient (BNVA) | payer OTHER, SELFPAY | PROVIDERS: PCP Internal Medicine; Visit Provider Internal Medicine | DX: M54.50 Low back pain, unspecified (principal) | CPT/HCPCS: 99213 ==

== ENCOUNTER 2025-10-14 06:30 | Outpatient (REF) | payer OTHER, SELFPAY ==
--- OUTSIDE RECORDS SUMMARY | 2025-10-14 06:32 | XMS_ITS | Clinical Summary ---
Author Organization [facility] Address [address] [place] [id number] Phone Care Team Providers Care Private Branch Exchange Service Advisor Name Role Phone Temo Vasquez MD Primary Care Provider [phone] Social History Tobacco Use Types Packs/Day Years [...] file Medical Devices Not on file Insurance [facility] PPO BLUE CROSS OUT OF STATE PPO [facility] [address] [employer] OUT OF STATE PPO [facility] [address] [employer] OUT OF STATE PPO [facility] [address] [facility] OUT OF STATE PPO [address] [facility] OUT OF [facility] [place] [place] [id number] [employer] [place] OUT [place] [facility] [place] [id number] BLUE CROSS OUT OF STATE PPO [facility] [address] [employer] OUT OF STATE PPO Care Teams Private Branch Exchange Service Advisor Relationship Specialty Start Date End Date Temo Vasquez MD PCP - General Internal Medicine 07/30/22 Additional Source Comments The information contained in this document represents components of the legal health record. It is not the complete legal health record.[facility]
== END 2025-10-14 06:31 | disposition home or self-care (01) ==
LOC: CF 06:30
PROVIDERS: Visit Provider Internal Medicine
DX: M54.51 Vertebrogenic low back pain (principal)
CPT/HCPCS: 99212; J1100; J2003; Q9967

== ENCOUNTER 2025-10-14 11:23 | Outpatient (AMB) | payer OTHER, SELFPAY ==
--- NOTE | 2025-10-19 16:11 | A.OFFVIS_ITS ---
Intake Visit Reasons: Left L2-L3 TFESI Allergies No Known Allergies Allergy (Verified 10/14/25 10:43) HPI HPI Left L2-L3 TFESI: Details: Patient presented for a left L2-3 transforaminal epidural steroid injection today however he denied any left-sided low back or leg symptoms. He did report right lower back pain radiating towards his right buttock. He endorsed pain with loading of his anterior column, including flexion. My review of MRI showed potential a endplate degenerative changes that could explain his anterior column pain that is mostly axial in nature with mild radiation towards the right buttock. [facility] Medical History Spondylosis of thoracolumbar spine Chronic low back pain Anxiety Hand arthritis BPH (benign prostatic hyperplasia) LIDA on CPAP Social History Alcohol intake: current Tobacco use type: Cigar Results Reviewed Results Reviewed: EXAM: MRI Lumbar Spine without Contrast. TECHNIQUE: Multiplanar multisequence MR imaging was performed through the lumbar spine without contrast. INDICATION: M47.816 - Spondylosis without myelopathy or radiculopathy, lumbar regio PRIOR: X-ray performed March 15, 2025 FINDINGS: 5 non-rib bearing lumbar segments are present on x-ray. Marrow and end-plates: Modic 2 signal change is present at L1-2 and L2-3. Alignment: There is very subtle retrolisthesis at L2-3 and L3-4. Soft tissues: Numerous simple parapelvic and simple renal cysts are visible in the kidneys. Conus: The termination of conus medullaris is within normal limits at the level of L1. T12-L1: There is no disc bulge, herniation, spinal stenosis, or foraminal narrowing. L1-L2: There is mild loss of disc height and minimal disc bulge without spinal stenosis or foraminal narrowing. L2-L3: There is mild loss of disc height and circumferential broad-based disc bulge with left subarticular zone extrusion that mildly compresses the left L3 nerve root. There is no foraminal narrowing. L3-L4: There is mild loss of disc height and minimal circumferential broad-based disc bulge with mild facet degeneration not resulting in spinal stenosis. There is mild bilateral foraminal narrowing. L4-L5: There is mild circumferential broad-based disc bulge and moderate facet degeneration with trace fluid in the facet joints. There is no spinal stenosis. There is mild to moderate right and mild left foraminal narrowing. L5-S1: There is no disc bulge, herniation, spinal stenosis, or foraminal narrowing. MR/MR lumbar spine wo con IMPRESSION: L2-L3: There is a left subarticular zone herniation that mildly compresses the left L3 nerve root. L4-L5: There is mild to moderate right foraminal narrowing. Electronically signed by: Den Crespo MD 06/15/2025 03:05 PM EDT RP Assessment & Plan Assessment & Plan (1) Vertebrogenic low back pain: Code(s): M54.51 - Vertebrogenic low back pain Category: Medical Plan 60-year-old male with multilevel Modic type 2 changes from L1 through S1. I believe he is a reasonable candidate for basivertebral nerve ablation at L2, L3, L4, L5 and S1 levels. He denies significant radicular symptoms at this time. Most of his pain is axial in nature worse with anterior column loading including flexion and lateral bending. We will request authorization for the Intracept procedure from his insurance. We will proceed with the Intracept procedure once we have insurance authorization. Coding Level of Care Code Est Pt Level 3 (01173) Diagnoses Vertebrogenic low back pain M54.51
== END 2025-10-14 11:23 | disposition home or self-care (01) ==
LOC: HO.PMCPRC 11:23
PROVIDERS: PCP Internal Medicine; Visit Provider Internal Medicine
DX: M54.51 Vertebrogenic low back pain (principal)
CPT/HCPCS: 99213

== ENCOUNTER → 2025-10-20 11:18 | Outpatient (BNVA) | payer OTHER, SELFPAY | PROVIDERS: PCP Internal Medicine; Visit Provider Internal Medicine | DX: M51.26 Other intervertebral disc displacement, lumbar region (principal); M47.816 Spondylosis without myelopathy or radiculopathy, lumbar region | CPT/HCPCS: 99213 ==